=== PATIENT | female | born 1990 | race Caucasian/White ===

== ENCOUNTER 2023-09-07 06:00 | Inpatient (IN) | payer BC ==
[~2023-09-07 06:00] MED LIST: CITRIC ACID/SODIUM CITRATE 30 ML UNIT-DOSE CUP PO ONE; ELECTROLYTE-148 SOLN 500 ML IV ONE
[2023-09-07] MEDS ORDERED: ELECTROLYTE-148 SOLN 1,000 ML IV SCH ×2 (06:30→08:30)
[2023-09-07 06:38] VITALS: BMI 30.9
[2023-09-07] MEDS ORDERED: ELECTROLYTE-148 SOLN 500 ML IV ONE (08:17)
[2023-09-07] MEDS ORDERED: morphine SULFATE/PF 1 MG/2 ML (2cc Syringe - QUVA) ONE (08:20)
[2023-09-07] MEDS ORDERED: PHENYLEPHRINE HCL 10 MG/1 ML SINGLE DOSE VIAL ONE (08:20)
[2023-09-07] MEDS ORDERED: ePHEDrine SULFATE 50 MG/1 ML AMPULE ONE (08:31)
[2023-09-07] MEDS ORDERED: FENTANYL CITRATE/PF 50 MCG/ML VIAL ONE (09:06)
[2023-09-07] MEDS ORDERED: MIDAZOLAM HCL 2 MG/2 ML SINGLE DOSE VIAL ONE (09:06)
[2023-09-07] MEDS ORDERED: SENNOSIDES/DOCUSATE COMBO (SENNA PLUS) TABLET (UD) PO PRN (09:24)
[2023-09-07] MEDS ORDERED: WITCH HAZEL 50% (TUCKS) 40 PAD/JAR PAD TP PRN (09:24)
[2023-09-07] MEDS ORDERED: IBUPROFEN 800 MG/8 ML IJ IVPB PRN (09:24)
[2023-09-07] MEDS ORDERED: METHYLERGONOVINE MALEATE 0.2 MG/1 ML AMP IM PRN (09:24)
[2023-09-07] MEDS ORDERED: CEFAZOLIN SODIUM 2 GM VIAL IVPB SCH (09:30)
[2023-09-07 09:41] LABS: CORD HCO3 21.3 mmHg (20-29); CORD PCO2 32.2 mmHg (30-78); CORD pH 7.438 (7.14-7.44)
[2023-09-07 09:44] LABS: CORD HCO3 23.9 mmHg (20-29); CORD PCO2 47.9 mmHg (30-78); CORD pH 7.316 (7.14-7.44)
[2023-09-07] MEDS ORDERED: ONDANSETRON 4 MG/2 ML VIAL IVPUSH PRN (09:54)
[2023-09-07] MEDS ORDERED: IBUPROFEN 600 MG TABLET (FP) PO PRN (09:54)
[2023-09-07] MEDS ORDERED: ACETAMINOPHEN 325 MG TABLET (FP) PO PRN (09:54)
[2023-09-07] MEDS ORDERED: CEFAZOLIN SODIUM 2 GM in DEXTROSE 5%-WATER 100 ML IVPB SCH (10:00)
[2023-09-07] MEDS: OXYTOCIN 20 UNITS in 0.9% NS 20 UNIT/1,000 ML INFUS.BAG IV SCH ×2 (12:00→22:53)
[2023-09-07] MEDS: PRENATAL VITAMINS W/ FOLIC ACID TABLET (FP) PO SCH (12:57)
[2023-09-07] MEDS: CEFAZOLIN SODIUM 2 GM in DEXTROSE 5%-WATER 100 ML IVPB SCH ×2 (13:14→21:16)
[2023-09-07] MEDS: IBUPROFEN 600 MG TABLET (FP) PO PRN (17:20)
[2023-09-07] MEDS: SIMETHICONE 80 MG TAB.CHEW (FP) PO PRN (21:16)
[2023-09-07] MEDS ORDERED: oxyCODONE HCL 5 MG TABLET PO PRN ×2 (21:24)
[2023-09-08] MEDS: IBUPROFEN 600 MG TABLET (FP) PO PRN ×4 (00:29→20:45)
[2023-09-08] MEDS: CEFAZOLIN SODIUM 2 GM in DEXTROSE 5%-WATER 100 ML IVPB SCH (04:49)
[2023-09-08] MEDS: SIMETHICONE 80 MG TAB.CHEW (FP) PO PRN ×2 (06:06→12:45)
[2023-09-08 07:37] LABS: BASO % 0.3 % (0-2.0); EOS % 0.7 % (0-4.5); HEMATOCRIT 27.3 % (32.4-45.2); HEMOGLOBIN 9.2 GM/dL (10.7-15.3); LYMPH % 15.1 % (8-40); MCH 27.6 pg (25.7-33.7); MCHC 33.7 g/dl (32.0-36.0); MONO % 7.5 % (3.8-10.2); NEUT % 76.4 % (42.8-82.8); PLATELET COUNT 148 10^3/uL (134-434); RBC 3.33 M/mm3 (3.60-5.2); RDW 14.6 % (11.6-15.6); WHITE BLOOD COUNT 10.4 K/mm3 (4.0-10.0)
[2023-09-08] MEDS ORDERED: BISACODYL 10 MG SUPP.RECT RC PRN (09:24)
[2023-09-08] MEDS ORDERED: ENOXAPARIN NA (PORCINE) 30 MG/0.3 ML DISP.SYRIN SQ SCH (10:00)
[2023-09-08] MEDS: PRENATAL VITAMINS W/ FOLIC ACID TABLET (FP) PO SCH (10:51)
[2023-09-08] MEDS: ACETAMINOPHEN 325 MG TABLET (FP) PO PRN (15:09)
[2023-09-09] MEDS: ACETAMINOPHEN 325 MG TABLET (FP) PO PRN ×2 (00:14→12:56)
[2023-09-09] MEDS: IBUPROFEN 600 MG TABLET (FP) PO PRN ×3 (03:56→16:14)
[2023-09-09] MEDS: SIMETHICONE 80 MG TAB.CHEW (FP) PO PRN ×3 (04:02→16:14)
[2023-09-09] MEDS: PRENATAL VITAMINS W/ FOLIC ACID TABLET (FP) PO SCH (09:14)
[2023-09-09 10:11] VITALS: BP 124/82; PULSE 103; RESP 16; TEMP 98.9
== END 2023-09-09 17:00 | disposition home or self-care (01) | DRG 788 ==
LOC: JLDR 06:00 → J3W 11:55
PROVIDERS: ADMIT Obstetrics & Gynecology; ATTEND Obstetrics & Gynecology
PROC: 10D00Z1 Extraction of Products of Conception, Low, Open Approach (ICD-10-PCS; principal; 2023-09-07)
DX: O24.429 Gestational diabetes mellitus in childbirth, unspecified control (principal); O32.8XX0 Maternal care for other malpresentation of fetus, not applicable or unspecified; Z3A.39 39 weeks gestation of pregnancy; Z37.0 Single live birth
CPT/HCPCS: 36415; 36600; 82803; 82962; 85025; 85461; 88307-TC; 94010; 96372; J2790